=== PATIENT | female | born 1935 | race Caucasian/White ===

== ENCOUNTER 2016-06-18 09:27 | Day surgery (SDC) | payer OTHER ==
[2016-06-18] MEDS ORDERED: diphenhydrAMINE 25 MG CAP PO ONE ×2 (09:32→10:04)
[2016-06-18] MEDS ORDERED: ASPIRIN EC 325 MG TAB PO ONE ×2 (09:32→10:04)
[2016-06-18] MEDS ORDERED: NS 1,000 ML IV ONE (09:32)
[2016-06-18] MEDS ORDERED: FAMOTIDINE 20 MG TAB PO ONE (09:32)
[2016-06-18] MEDS ORDERED: DIAZEPAM 5 MG TAB PO ONE (09:32)
--- NOTE | 2016-06-18 10:02 | CPEKG ---
Heart Rate: 57 RR Interval: 1053 P-R Interval: 156 QRSD Interval: 78 QT Interval: 444 QTC Interval: 433 P [place]: 66 QRS [place]: 7 T Wave [place]: 68 EKG Severity - NORMAL ECG - EKG Impression: SINUS RHYTHM Electronically Signed By: Kemi Walter 18-Jun-2016 15:06:57
[2016-06-18] MEDS ORDERED: FAMOTIDINE 20 MG TAB ONE (10:04)
[2016-06-18] MEDS ORDERED: DIAZEPAM 5 MG TAB ONE (10:04)
[2016-06-18 10:30] LABS: % IMMATURE GRANULYOCYTES 0.3 % (0.0-1.1); ABSOLUTE IMMATURE GRANULOCYTES 0.02 10^3/uL (0.00-0.10); ADD DIFF? NO; ADD MORPH? NO; ADD SCAN? NO; ATYPICAL LYMPHOCYTE FLAG 10 (0-99); FRAGMENT RBC FLAG 10 (0-99); HEMATOCRIT 40.8 % (38.0-47.0); HEMOGLOBIN 13.6 g/dL (12.6-16.3); LEFT SHIFT FLG 0 (0-99); LIPEMIA HEMOLYSIS FLAG 80 (0-99); MEAN CELL HEMOGLOBIN 33.1 pg (27.9-34.1); MEAN CELL HEMOGLOBIN CONCENTR. 33.3 g/dL (32.4-36.7); MEAN CELL VOLUME 99.3 fL (81.5-99.8); MEAN PLATELET VOLUME 12.2 fL (8.7-11.7); PLATELET CLUMPS FLAG 20 (0-99); PLATELET COUNT 193 10^3/uL (150-400); RED BLOOD CELL COUNT 4.11 10^6/uL (4.18-5.33); RED CELL DISTRIBUTION WIDTH 13.6 % (11.5-15.2)
[2016-06-18 10:39] LABS: INR 1.05 (0.83-1.16); PROTIME(PATIENT) 13.6 SEC (12.0-15.0)
[2016-06-18 10:41] LABS: ANION GAP 10 mEq/L (8-16); CALCIUM 9.5 mg/dL (8.5-10.4); CARBON DIOXIDE 23 mEq/l (22-31); CHLORIDE 110 mEq/L (97-110); CHOLESTEROL 123 mg/dL (140-220); CHOLESTEROL/HDL RATIO 2.02 RATIO (1.00-4.44); CREATININE 0.5 mg/dL (0.6-1.0); GLOMERULAR FILTRATION RATE > 60; GLUCOSE 107 mg/dL (70-100); HIGH DENSITY LIPOPROTEIN 61 mg/dL (40-85); LDL/HDL RATIO 0.72 RATIO (1.00-3.22); LOW DENSITY LIPOPROTEIN 44 mg/dL (80-100); MAGNESIUM 2.1 mg/dL (1.6-2.3); NON-HIGH DENSITY LIPOPROTEIN 62 mg/dL (90-129); POTASSIUM 4.1 mEq/L (3.5-5.2); SODIUM 143 mEq/L (134-144); TRIGLYCERIDE 93 mg/dL (35-135); VERY LOW DENSITY LIPOPROTEINS 18 mg/dL (8-25)
[2016-06-18] MEDS ORDERED: fentaNYL 100 MCG/2 ML INJ ONE (11:45)
[2016-06-18] MEDS ORDERED: IOPAMIDOL (ISOVUE-370) 150 ML BTL IV ONE ×2 (11:45→12:40)
[2016-06-18] MEDS ORDERED: HEPARIN 10,000 UNIT/10 ML MDV ONE (11:45)
[2016-06-18] MEDS ORDERED: MIDAZOLAM 2 MG/2 ML VIAL ONE (11:45)
[2016-06-18] MEDS ORDERED: LIDOCAINE 1% 30 ML SDV ONE (11:45)
[2016-06-18] MEDS ORDERED: VERAPAMIL 5 MG/2 ML VIAL ONE (11:45)
--- NOTE | 2016-06-18 12:51 | PDDXCAT ---
Diagnostic Cath Note - . Date: 06/18/16 Intervention: none *Procedure Indication: NYHA Class III symptoms of shortness of breath with minimal exertion. The patient also complained of anginal quality chest discomfort consistent with CCS IV symptoms. Her recent echocardiogram is incongruent with her clinical symptoms that suggest at least moderate aortic stenosis. History of coronary artery disease s/p PCI and stent implantation. Access: left radial artery (a plethysmography trace assisted Paxton's test was used to document dual artery supply to the hand and index finger prior to access ), left brachial vein. Procedure: 1. selective coronary angiography 2. left heart catheterization 3. left ventriculogram *Materials Coronary Angiography Size: 5F Coronary Angiography and Left Heart Cath Materials: AL1, JL3.5, JR4.0, pigtail *Findings-Selective coronary angiography LM: The left main is 5 mm in size and bifurcates into an LAD and circumflex system. There is no flow-limiting disease with MIGUEL III flow throughout. LAD: There is a 30% ostial stenosis of the LAD that is non-flow limiting. Previously placed LAD stents are widely patent. MIGUEL III flow throughout. There is decreased flow in septal perforators which are the vessels which fill from the right to left collaterals originating from the RCA. LCX: Maximum luminal stenosis in the left circumflex proper is 20%. There is a small ostial obtuse marginal with a 70% and MIGUEL III flow. RCA: The right coronary artery is dominant (gives rise to PDA and PLV branches) and ~3 mm in size. Maximal luminal stenosis is 20% in the mid RCA with MIGUEL III flow. There is evidence of right to left collaterals to the LAD. *Findings-Left Heart Catheterization LVEDP: 25 mmHg Ejection Fraction: 60% Wall motion analysis: No wall motion abnormalities were identified on left ventriculogram. The visualized portion of the thoracic aorta revealed three sinuses of Valsalva with no evidence of [place] aneurysm or dissection. AO: 136/58/84 mmHg *Summary Complications: None Estimated blood loss: <50ml Closure method: TR band Assessment: 1. Three Affiliated vessel coronary artery disease with branch vessel obstruction of a small and first obtuse marginal branch (70% plaque area stenosis with MIGUEL III flow). There was non-flow limiting disease identified in the LAD, left circumflex or dominant right coronary artery. Intervention was not warranted at the present time. There was evidence of right to left collaterals to the septal perforators that were compromised by previously placed stents. 2. Normal ejection fraction estimated to be 60% with normal systolic wall motion and elevated LVEDP at 25 mmHg. 3. No aortic valve gradient was identified, which is in contrast to an echocardiogram performed 03/10/16 which identified a peak aortic gradient of 19 mmHg and mean aortic gradient of 9 mmHg. ( I thought this may be underestimated given the clinical symptoms. There is no evidence of low gradient severe aortic stenosis. A cause for the patient's shortness of breath and resting chest discomfort is not identified on the basis of this study. It is safe for her to exercise on a routine moderate basis to improve her symptoms. Patient Problems: Problems Problem Status Onset CAD - Coronary arteriosclerosis Active Depression - Depressive disorder Active Dyslipidemia Active Low blood pressure Active Obstructive sleep apnea syndrome Active Peripheral arterial occlusive disease Active
== END 2016-06-18 17:45 | disposition home or self-care (01) ==
LOC: FCATH 09:27
PROVIDERS: ATTEND Internal Medicine Cardiovascular Disease
PROC: 4A023N7 Measurement of Cardiac Sampling and Pressure, Left Heart, Percutaneous Approach (ICD-10-PCS; principal; 2016-06-18)
PROC: B2111ZZ Fluoroscopy of Multiple Coronary Arteries using Low Osmolar Contrast (ICD-10-PCS; principal; 2016-06-18)
PROC: B2151ZZ Fluoroscopy of Left Heart using Low Osmolar Contrast (ICD-10-PCS; principal; 2016-06-18)
DX: R06.09 Other forms of dyspnea (principal); I25.119 Atherosclerotic heart disease of native coronary artery with unspecified angina pectoris; I10 Essential (primary) hypertension; Z95.5 Presence of coronary angioplasty implant and graft
CPT/HCPCS: 93005; 93458; C1769; J1644; J2250; J3010; Q9967

== ENCOUNTER 2017-06-27 11:41 | Emergency (ER) | payer OTHER ==
[2017-06-27 11:52] VITALS: RESP 18
--- NOTE | 2017-06-27 12:34 | EDPHY ---
H & P Stated Complaint: burning freq/hematuria Time Seen by Provider: 06/27/17 12:09 - Personal History Current Tetanus/Diphtheria Vaccine: Yes Tetanus Vaccine Date: < 10 YEARS - Medical/Surgical History Hx Asthma: No Hx Chronic Respiratory Disease: No Hx Diabetes: No Hx Cardiac Disease: Yes Hx Renal Disease: No Hx Cirrhosis: No Hx Alcoholism: No Hx HIV/AIDS: No Hx Splenectomy or Spleen Trauma: No Other PMH: CAD - Social History Smoking Status: Never smoked Constitutional: Initial Vital Signs Temperature (C) 36.8 C 06/27/17 11:49 Heart Rate 72 06/27/17 11:49 Respiratory Rate 18 06/27/17 11:49 Blood Pressure 122/55 H 06/27/17 11:49 O2 Sat (%) 94 06/27/17 11:49 O2 Delivery Mode Room Air Allergies/Adverse Reactions: avocado [Avocado] Allergy (Unknown, Verified 06/27/17 11:48) Other-Enter Comments No Known Drug Allergies Allergy (Unknown, Verified 06/27/17 11:48) Unknown SHRIMP Allergy (Unknown, Uncoded 11/18/09 11:41) Other-Enter Comments AVOCADO Allergy (Uncoded 10/06/12 19:10) Home Medications: Medication Instructions Recorded Aspirin EC [Aspirin EC 81 mg (*)] 81 mg PO HS 06/18/16 Calcium Carbonate [Tums 500MG (*)] 500 - 1,000 mg PO TIDMEAL 06/18/16 Carboxymethylcellulose 1% [Refresh 1 drop EACHEYE DAILY PRN 06/18/16 Celluvisc (*)] Dorzolamide/Timolol [Cosopt (*)] 1 drops EACHEYE BID 06/18/16 Ezetimibe/Simvastatin [Vytorin 1 each PO DAILY 06/18/16 10-40 mg Tablet] Levothyroxine [Synthroid 88 mcg 88 mcg PO DAILY06 06/18/16 (*)] Losartan/Hydrochlorothiazide 1 each PO DAILY 06/18/16 [Losartan-Hctz 100-25 Mg Tab] Multivitamins [Multivitamin (*)] 1 each PO DAILY 06/18/16 Naproxen Sodium [Aleve 220 MG (*)] 440 mg PO DAILY 06/18/16 Niacin ER [Niaspan 1000 mg (*)] 1,000 mg PO HS 06/18/16 Sertraline HCl [Zoloft 50mg (*)] 50 mg PO DAILY 06/18/16 cycloSPORINE 0.05% [Restasis Opht 1 drop EACHEYE BID 06/18/16 Drops(*)] Cephalexin [Keflex (RX)] 500 mg PO TID #30 cap 06/27/17 Medical Decision Making ED Course/Re-evaluation: CHIEF COMPLAINT: Urinary retention HISTORY OF PRESENT ILLNESS: The patient is an 82 y/o female arriving at the referral of her PCP for evaluation of urinary retention and possible UTI. The patient says she was last able to urinate normally yesterday. She notes she has an appointment to remove her pessary in two days. REVIEW OF SYSTEMS: A 10 point review of systems was performed and is negative with the exception of the elements mentioned in the history of present illness. PHYSICAL EXAM: HR, BP, O2 Sat, RR. Temp noted General Appearance: Alert, well hydrated, appropriate, and non-toxic appearing. Head: Atraumatic without scalp tenderness or obvious injury Eyes: Pupils equal, round, reactive to light and accommodation, EOMI, no trauma , no injection. Ears: Clear bilaterally, no perforation, normal landmarks Nose: Atraumatic, no rhinorrhea, clear. Throat: There is no erythema or exudates, no lesions, normal tonsils, mucus membranes moist. Neck: Supple Respiratory: No retractions, no distress, no wheezes, and no accessory muscle use. Lungs are clear to auscultation bilaterally. Cardiovascular: Regular rate and rhythm, no murmurs, rubs, or gallops. Good capillary refill all extremities. Gastrointestinal: Abdomen is soft, non-tender, non-distended, no masses, no rebound, no guarding, no peritoneal signs. Musculoskeletal: Normal active ROM of all extremities, atraumatic. Neurological: Alert, appropriate, and interactive. Nonfocal neuro exam. Skin: No rashes, good turgor, no nodules on palpation. PAST MEDICAL HISTORY: Uterine prolapse with pessary, CAD, obstructive sleep apnea, hypothyroidism, cognitive decline, GERD, carotid artery stenosis, dyslipidemia, depression, IBS, RLS, osteoarthritis PAST SURGICAL HISTORY: left CEA in 2009, stent to LAD, left total knee replacement, corneal transplant SOCIAL HISTORY: . Nonsmoker. No alcohol. DIAGNOSTICS/PROCEDURES/CRITICAL CARE TIME: Bladder scan: 0mL DIFFERENTIAL DIAGNOSIS: The differential diagnosis for the patient's urinary retention included but was not limited to medication side effect, neurologic causes, outflow obstruction, and infection. MEDICAL DECISION MAKING: Benign abdomen. Plan for UA and bladder scan. UA indicates UTI. No retained urine on scan. 1gm IM Ceftriaxone administered here. She will be discharged on a course of Keflex with standard care and return precautions. She is comfortable with this plan. - Data Points Laboratory Results: 06/27/17 11:55 Urine Color YELLOW Urine Appearance TURBID Urine pH 6.0 (5.0-7.5) Ur Specific [place] 1.016 (1.002-1.030) Urine Protein 2+ H (NEGATIVE) Urine Ketones TRACE H (NEGATIVE) Urine Blood 3+ H (NEGATIVE) Urine Nitrate NEGATIVE (NEGATIVE) Urine Bilirubin NEGATIVE (NEGATIVE) Urine Urobilinogen NEGATIVE EU EU (0.2-1.0) Ur Leukocyte Esterase 3+ H (NEGATIVE) Urine RBC 50-182 /hpf H /hpf (0-3) Urine WBC 50-182 /hpf H /hpf (0-3) Ur Epithelial Cells NONE SEEN /lpf /lpf (NONE-1+) Urine Glucose NEGATIVE (NEGATIVE) Departure - Departure Disposition: Home, Routine, Self-Care Clinical Impression: UTI (urinary tract infection) Qualifiers: Urinary tract infection type: site unspecified Hematuria presence: without hematuria Qualified Code(s): N39.0 - Urinary tract infection, site not specified Condition: Good Instructions: Urinary Tract Infection in Women (ED) Additional Instructions: Take Keflex as prescribed. Be sure to complete the entire prescription. Follow up with your OBGYN as planned this week. Return to the ED for worsening of condition. Referrals: Jonh Kelsey MD [Medical Doctor] - As per Instructions Prescriptions: Cephalexin [Keflex (RX)] 500 mg PO TID #30 cap Report Scribed for: Jason Mtz Report Scribed by: Loan Eden Date of Report: 06/27/17 Time of Report: 12:34
[2017-06-27 13:21] VITALS: BP 110/62; PULSE 76; TEMP 98.6; O2SAT 95
== END 2017-06-27 13:29 | disposition home or self-care (01) ==
DX: N39.0 Urinary tract infection, site not specified (principal); I25.10 Atherosclerotic heart disease of native coronary artery without angina pectoris; Z79.82 Long term (current) use of aspirin
CPT/HCPCS: 96372; 99284; J0696

== ENCOUNTER → 2018-06-15 | Outpatient (CLI) | payer OTHER ==
[~2018-06-15] MED LIST: IOPAMIDOL (ISOVUE 370) 100 ML BTL IV ONE
== END ==
LOC: FIMAGING 13:33
PROVIDERS: ATTEND Internal Medicine Cardiovascular Disease
DX: I65.21 Occlusion and stenosis of right carotid artery (principal)
CPT/HCPCS: 70498; Q9967